=== PATIENT | male | born 1960 | race Caucasian/White ===

== ENCOUNTER 2018-05-22 23:26 | Observation (INO) ==
[2018-05-23 00:15] VITALS: O2SAT 98
[2018-05-23 00:27] LABS: Baso # (Auto) 0.1 th/mm3 (0.0-0.2); Eos # (Auto) 0.5 th/mm3 (0.0-0.4); Hematocrit 42.1 % (39.0-51.0); Hemoglobin 14.5 gm/dL (13.0-17.0); Lymph # (Auto) 3.3 th/mm3 (1.0-4.8); Lymph % (Auto) 36.9 % (9.0-44.0); Mean Corpuscular HGB Conc 34.5 % (32.0-36.0); Mean Corpuscular Hemoglobin 31.2 pg (27.0-34.0); Mean Corpuscular Volume 90.5 fL (80.0-100.0); Mean Platelet Volume 8.9 fL (7.0-11.0); Mono # (Auto) 0.7 th/mm3 (0.0-0.9); Mono % (Auto) 8.2 % (0.0-8.0); Neut # (Auto) 4.4 th/mm3 (1.8-7.7); Neut % (Auto) 48.9 % (16.0-70.0); Platelet Count 278 th/mm3 (150-450); Red Blood Count 4.65 mil/mm3 (4.50-5.90); Red Cell Distribution Width 13.3 % (11.6-17.2)
[2018-05-23 00:46] LABS: Activated Partial Thrombo Time 27.9 sec (24.3-30.1); Prothrombin Time 10.4 sec (9.8-11.6)
[2018-05-23 01:00] LABS: Anion Gap 5 meq/L (5-15); Blood Urea Nitrogen 19 mg/dL (7-18); Calcium 8.9 mg/dL (8.5-10.1); Carbon Dioxide 30.9 meq/L (21.0-32.0); Chloride 103 meq/L (98-107); Glomerular Filtration Rate 66 mL/min (>89); Glucose,Random 90 mg/dL (74-106); Potassium 3.7 meq/L (3.5-5.1); Sodium 139 meq/L (136-145)
--- NOTE | 2018-05-23 01:01 | XR ---
EXAM DATE: 05/23/2018 12:48 AM EDT AGE/SEX: 57 years / Male INDICATIONS: Shortness of breath and chest pain off and on for a few weeks. CLINICAL DATA: This is the patient's initial encounter. Patient reports that signs and symptoms have been present for 2 weeks and indicates a pain score of 3/10. MEDICAL/SURGICAL HISTORY: None. None. COMPARISON: No prior exams available for comparison. FINDINGS: A single AP view of the chest demonstrates the lungs to be symmetrically aerated without evidence of mass, infiltrate or effusion. The cardiomediastinal contours are unremarkable. Osseous structures a re intact. CONCLUSION: No acute cardiopulmonary disease Electronically signed by: Jerson Mike MD 05/23/2018 1:00 AM EDT
--- NOTE | 2018-05-23 01:02 | US ---
EXAM DATE: 05/23/2018 12:42 AM EDT AGE/SEX: 57 years / Male INDICATIONS: Right leg swelling. CLINICAL DATA: This is the patient's initial encounter. Patient reports that signs and symptoms have been present for 1 month and indicates a pain score of 0/10. MEDICAL/SURGICAL HISTORY: . Hemorrhoids. . Hand surgery. Knee surgery. Cyst removal. COMPARISON: No prior exams available for comparison. TECHNIQUE: Venous ultrasound of both lower extremities was performed from the inguinal ligament to t he proximal calf. Real-time, color Doppler and spectral tracing, compression and augmentation techni ques were used. FINDINGS: Normal compression of the deep venous system from the inguinal region to the proximal calf . No echogenic clot is seen. Normal response of the venous system to augmentation and respiration. CONCLUSION: 1. No DVT right leg Electronically signed by: Jerson Mike MD 05/23/2018 1:01 AM EDT
--- NOTE | 2018-05-23 01:11 | ED ---
HPI General Chief complaint: Chest Pain Stated complaint: Chest pain, SOB Time Seen by Provider: 05/22/18 23:48 Source: patient, family and RN notes reviewed Mode of arrival: ambulatory History of Present Illness HPI narrative: 57yM presenting with chest pain. The patient states that for the past several weeks he's been having episodes of sudden-onset left-sided chest pain which he describes as "sharp/ aching", radiating to his left shoulder, lasting for a few minutes and resolving on its own, moderate intensity, precipitated by minimal exertion and relieved with rest, and associated with lightheadedness "like I'm going to pass out". He denies fever, cough, palpitations, dyspnea, or nausea. He reports chronic RLE edema which is somewhat improved compared to baseline. He is visiting from the [place] and had a long car ride yesterday. He has not seen a finisher brush in a number of years. Family history significant for father with CAD in early 60s/ fatal [place] in late 60s. Related Data Allergies Allergy/AdvReac Type Severity Reaction Status Date / Time No Known Allergies Allergy Verified 05/22/18 23:31 Review of Systems ROS: all other systems reviewed are negative Constitutional Denies fever(s) Eyes Denies blurry vision ENT Denies nasal congestion Cardiovascular Reports chest pain Respiratory Denies cough Gastrointestinal Denies nausea Genitourinary Denies dysuria Musculoskeletal Denies back pain Neurologic Denies confusion Psychiatric Denies confusion PMFSH History History Provided By: Patient Medical History Medical History Hx of hemorrhoids (Acute) Patient denies medical problems (Acute) Surgical History Surgical History Hx of hand surgery (Acute) Hx of knee surgery (Acute) Hx of removal of cyst (Acute) Social History Social History Substance History: No History of Abuse Second Hand Smoke Exposure: No Smoking Status: Former smoker How Often Do You Have a Drink Containing Alcohol: Never Recent Travel in [facility] within the Last 8 Weeks: No Recent Out of Country Travel within the Last 8 Weeks: No Immunization History Tetanus Immunization: <5 Years Hx Influenza Vaccine This Season: No Exam Const General: healthy appearing and no acute distress HENMT Head: normocephalic and atraumatic Face and sinus: normal facial exam Eyes General: appearance normal, both eyes and all related structures Pupils: PERRL Chest Chest: normal inspection of the chest Resp Effort & Inspection: normal respiratory effort Auscultation: no rhonchi and no wheezes Cardio Rate: regular rate Rhythm: regular rhythm GI Inspection: non-distended Palpation: soft and nontender Skin General: no rashes or lesions noted Neuro General: alert, awake, oriented x3 and no focal motor deficits Extrem Other: 1+ pitting edema to right knee, trace edema to left ankle Psych Affect: normal affect Course Initial Documented Vital Signs Temperature 97.6 F 05/22/18 23:29 Pulse Rate 77 05/22/18 23:29 Respiratory Rate 18 05/22/18 23:29 Blood Pressure 122/69 05/22/18 23:29 Pulse Oximetry 99 05/22/18 23:29 Last Documented Vital Signs Temperature 97.6 F 05/22/18 23:29 Pulse Rate 79 05/23/18 00:14 Respiratory Rate 18 05/22/18 23:43 Blood Pressure 150/71 H 05/22/18 23:43 Pulse Oximetry 98 05/23/18 00:14 Clinical Decision Support HEART Score Questions History: Moderately suspicious EKG: Non-specific repolarization disturbance Age: 45-64 years Risk Factors: 1-2 Risk Factors Initial Troponin: Normal Limit Heart Score HEART Score: 4 Medical Decision Making [facility] Narrative Medical decision making narrative: Assessment: 57yM presenting with chest pain Plan: EKG and monitor Labs CXR US right lower extremity Patient is high-risk for unstable angina/ ACS, will need to stay for chest pain center obs Patient and his daughter understand and agree with plan. Differential Diagnosis Differential Diagnosis: Differential diagnosis includes, but is not limited to: ACS/ unstable angina, pericarditis, pneumonia, pleuritis Lab Data Lab results reviewed: Yes I reviewed the patient's lab results. Result diagrams: 05/23/18 00:10 05/23/18 00:10 Lab Results 05/23/18 05/23/18 05/23/18 Range/Units 00:10 00:10 00:10 WBC 9.0 (4.0-11.0) th/mm3 RBC 4.65 (4.50-5.90) mil/mm3 Hgb 14.5 (13.0-17.0) gm/dL Hct 42.1 (39.0-51.0) % MCV 90.5 (80.0-100.0) fL MCH 31.2 (27.0-34.0) pg MCHC 34.5 (32.0-36.0) % RDW 13.3 (11.6-17.2) % Plt Count 278 (150-450) th/mm3 MPV 8.9 (7.0-11.0) fL Neut % (Auto) 48.9 (16.0-70.0) % Lymph % (Auto) 36.9 (9.0-44.0) % [place] % (Auto) 8.2 H (0.0-8.0) % Eos % (Auto) 5.0 H (0.0-4.0) % Baso % (Auto) 1.0 (0.0-2.0) % Neut # (Auto) 4.4 (1.8-7.7) th/mm3 Lymph # (Auto) 3.3 (1.0-4.8) th/mm3 [place] # (Auto) 0.7 (0.0-0.9) th/mm3 Eos # (Auto) 0.5 H (0.0-0.4) th/mm3 Baso # (Auto) 0.1 (0.0-0.2) th/mm3 WBC Differential . Differential Comment Auto diff final PT 10.4 (9.8-11.6) sec INR 1.0 Ratio APTT 27.9 (24.3-30.1) sec Sodium 139 (136-145) meq/L Potassium 3.7 (3.5-5.1) meq/L Chloride 103 (98-107) meq/L Carbon Dioxide 30.9 (21.0-32.0) meq/L Anion Gap 5 (5-15) meq/L BUN 19 H (7-18) mg/dL Creatinine 1.14 (0.60-1.30) mg/dL Estimated GFR 66 L (>89) mL/min Random Glucose 90 (74-106) mg/dL Calcium 8.9 (8.5-10.1) mg/dL Troponin I Less than 0.02 L (0.02-0.05) ng/mL Imaging Data Radiologist's impression: Chest X-Ray 05/23/18 00:01 CONCLUSION: No acute cardiopulmonary disease Venous Doppler Study 05/23/18 00:01 CONCLUSION: 1. No DVT right leg ECG Data Attestation: I personally reviewed and interpreted this ECG as follows: Interpretation: Rate: 70 BPM Rhythm: Sinus [place]: Normal Intervals: ICVD, QTc 400 ms Q waves: None T waves: Flattened in aVL ST segments: No elevations or depressions Impression: Non-specific EKG, no previous EKG available for comparison. Discharge Plan Discharge Disposition Patient Disposition: 30 Still Patient Discharge Condition Condition: Stable Discharge Details Diagnosis: Unstable angina Physicians Team ED Provider: Maryjane Marcus Primary Care Provider: Primary Care Karlee Sparks Discharge Instructions Patient Printed Instructions: Chest Pain (ED) Discharge Interventions Interventions: Vital Signs Last Done: 05/22/18 23:43 Status ED Status: Ready for Discharge
[2018-05-23] MEDS ORDERED: Acetaminophen 500 MG Tablet PO PRN (01:41)
[2018-05-23] MEDS ORDERED: Amitriptyline 100 MG Tablet PO ONE (01:41)
--- NOTE | 2018-05-23 07:52 | P.HPCA ---
History of Present Illness Primary Care Physician: Primary Care Physician in [place] Chief Complaint: Chest pain History of Present Illness: 57 year old male without significant medical history presents to ER for further evaluation of nonexertional, intermittent chest pain. Onset weeks. Location left anterior chest. Characterized as sharp, stabbing pain. Duration seconds. No radiation. Moderate in severity. No associated symptoms of nausea, vomiting, dyspnea, or diaphoresis. Did not hurt to take a deep breath. No particular movement or position made pain better or worse. No precipitating or relieving factors. Denies cardiac history. No past cardiac testing. Denies history of diabetes, hypertension, or hyperlipidemia. Family history noncontributory for early onset cardiovascular disease. Visiting from [place]. Plans to return home Wednesday. Reports intermittent chest pain for weeks and considered having primary care provider evaluated prior to trip to [place]. Last evening when getting up from couch, developed above pain. Daughter encouraged him to go to ER for further evaluation. No further chest discomfort since last evening episode. No recent illness or injury. - Diagnosis (1) Atypical chest pain Review of Systems All other systems reviewed negative except as stated in HPI PMFSH - History History Provided By: Patient - Medical History Medical History: Medical History (Last Reviewed 05/23/18 @ 10:01 by RALF Guardado) Hx of hemorrhoids Patient denies medical problems - Surgical History Surgical History: Surgical History (Last Reviewed 05/23/18 @ 10:01 by RALF Guardado) Hx of hand surgery Hx of knee surgery Hx of removal of cyst - Tobacco History Second Hand Smoke Exposure: No Tobacco Use In Past 30 Days: No Smoking Status: Former smoker (quit 2000, former 2-3 pack/daily) - Alcohol History How Often Do You Have a Drink Containing Alcohol: Never - Substance Use History Substance History: Past History - Travel History Recent Travel in the [place] Within the Last 8 Weeks: No Recent Travel Out of the Country Within the Last 8 Weeks: No - Immunization History Tetanus Immunization: <5 Years Hx Influenza Vaccine This Season: No Medications and Allergies Active Medications: Active Medications Acetaminophen (Tylenol) 500 mg PO Q4H PRN PRN Reason: HEADACHE Aspirin (Aspirin) 325 mg PO DAILY WIL Nitroglycerin (Nitrostat Sl) 0.4 mg SL Q5M PRN PRN Reason: CHEST PAIN Sodium Chloride (Ns Flush) 2 ml IV.FLUSH UNSCH PRN PRN Reason: FLUSH AFTER USING IV ACCESS Last Admin: 05/23/18 03:48 Dose: 2 ml Sodium Chloride (Ns Flush) 2 ml IV.FLUSH BID WIL Sodium Chloride (Ns Flush) 2 ml IV.FLUSH PRN PRN PRN Reason: FLUSH AFTER USING IV ACCESS Allergies Allergy/AdvReac Type Severity Reaction Status Date / Time No Known Allergies Allergy Verified 05/22/18 23:31 Exam Vital signs: Vital Signs 05/22/18 23:29 05/22/18 23:43 05/23/18 00:14 Temperature 97.6 F Pulse Rate 77 68 79 Respiratory Rate 18 18 Blood Pressure 122/69 150/71 H Pulse Oximetry 99 97 98 05/23/18 03:32 Temperature 98.2 F Pulse Rate 59 L Respiratory Rate 16 Blood Pressure 122/74 Pulse Oximetry 98 Intake & Output 05/22/18 05/23/18 05/23/18 18:59 06:59 18:59 Weight 105 kg Other: # Voids 2 Narrative: GENERAL: Alert WN, WD, NAD, male moderately obese HEAD: NC, AT EYES: Sclera clear, conjunctiva without injection, pupils equal and round ENT: Mucous membranes pink and moist, no nasal discharge or bleeding NECK: Supple, no masses, trachea midline CV: RRR, without murmur, rub, gallop. Chest wall nontender with palpation. RESP: Clear lungs throughout bilateral, no crackles, wheeze, rhonchi, symmetrical chest rise, nonlabored, able to speak in full sentences ABD: Soft, NT, ND, no masses, positive bowel tones EXT: Pulses +2x4, no dependent edema MS: Normal tone x4 extremities, nontender, no obvious deformities, full range of motion NEURO: CN II through CN XII grossly intact, motor strength 5/5, gait WNL PSYCH: A+O x3, flat affect, appropriate speech, mood, insight and judgment SKIN: Normal turgor, normal texture, no lesions, no rashes, brisk cap refill, even hair distribution Results 05/23/18 00:10 05/23/18 00:10 Cardiac Enzymes 05/23/18 05/23/18 Range/Units 00:10 03:31 Troponin I Less than 0.02 L Less than 0.02 L (0.02-0.05) ng/mL Coagulation 05/23/18 Range/Units 00:10 PT 10.4 (9.8-11.6) sec APTT 27.9 (24.3-30.1) sec CBC 05/23/18 Range/Units 00:10 WBC 9.0 (4.0-11.0) th/mm3 RBC 4.65 (4.50-5.90) mil/mm3 Hgb 14.5 (13.0-17.0) gm/dL Hct 42.1 (39.0-51.0) % Plt Count 278 (150-450) th/mm3 Neut # (Auto) 4.4 (1.8-7.7) th/mm3 Lymph # (Auto) 3.3 (1.0-4.8) th/mm3 [place] # (Auto) 0.7 (0.0-0.9) th/mm3 Eos # (Auto) 0.5 H (0.0-0.4) th/mm3 Baso # (Auto) 0.1 (0.0-0.2) th/mm3 Comprehensive Metabolic Panel 05/23/18 Range/Units 00:10 Sodium 139 (136-145) meq/L Potassium 3.7 (3.5-5.1) meq/L Chloride 103 (98-107) meq/L Carbon Dioxide 30.9 (21.0-32.0) meq/L BUN 19 H (7-18) mg/dL Creatinine 1.14 (0.60-1.30) mg/dL Calcium 8.9 (8.5-10.1) mg/dL Intake and Output 05/22/18 05/23/18 05/23/18 22:59 06:59 14:59 Other: # Voids 2 Weight 105 kg EKG interpretations - EKG EKG results cardiology: sinus rhythm, normal axis, normal QRS, normal ST/T Caprini VTE Risk Assessment Caprini VTE Risk Assessment: No/Low Risk (score <= 1) Caprini Risk Assessment Model: Point Value = 1 Point Value = 2 Point Value = 3 Point Value = 5 Age 41-60 Minor surgery BMI > 25 kg/m2 Swollen legs Varicose veins or History of unexplained or recurrent spontaneous Oral contraceptives or hormone replacement Sepsis (< 1 month) Serious lung disease, including pneumonia (< 1 month) Abnormal pulmonary function Acute myocardial infarction Congestive heart failure (< 1 month) History of inflammatory bowel disease Medical patient at bed rest Age 61-74 Arthroscopic surgery Major open surgery (> 45 min) Laparoscopic surgery (> 45 min) Malignancy Confined to bed (> 72 hours) Immobilizing plaster cast Central venous access Age >= 75 History of VTE Family history of VTE Factor V Leiden Prothrombin [id number] Lupus anticoagulant Anticardiolipin antibodies Elevated serum homocysteine Heparin-induced thrombocytopenia Other congenital or acquired thrombophilia Stroke (< 1 month) Elective arthroplasty Hip, pelvis, or leg fracture Acute spinal cord injury (< 1 month) Prophylaxis Regimen: Total Risk Factor Score Risk Level Prophylaxis Regimen 0-1 Low Early ambulation 2 Moderate Order ONE of the following: *Sequential Compression Device (SCD) *Heparin 5000 units SQ BID 3-4 Higher Order ONE of the following medications: *Heparin 5000 units SQ TID *Enoxaparin/Lovenox 40 mg SQ daily (WT < 150 kg, CrCl > 30 mL/min) *Enoxaparin/Lovenox 30 mg SQ daily (WT < 150 kg, CrCl > 10-29 mL/min) *Enoxaparin/Lovenox 30 mg SQ BID (WT < 150 kg, CrCl > 30 mL/min) AND/OR *Sequential Compression Device (SCD) 5 or more Highest Order ONE of the following medications: *Heparin 5000 units SQ TID (Preferred with Epidurals) *Enoxaparin/Lovenox 40 mg SQ daily (WT < 150 kg, CrCl > 30 mL/min) *Enoxaparin/Lovenox 30 mg SQ daily (WT < 150 kg, CrCl > 10-29 mL/min) *Enoxaparin/Lovenox 30 mg SQ BID (WT < 150 kg, CrCl > 30 mL/min) AND *Sequential Compression Device (SCD) Assessment and Plan - Assessment (1) Atypical chest pain Code(s): R07.89 - Other chest pain Status: Acute Plan: Admitted chest pain center. ACS ruled out 3 sets of EKGs and cardiac enzymes. Seen evaluated by Dr. Kai John. Proceed with exercise cardiac testing this morning. If unremarkable, plans to be discharged home with follow-up with PCP once returning home to [place]. Agreeable to plan of care and verbalized understanding. H&P: Quality - VTE Deep Vein Thrombosis/Pulmonary Embolism Present on Admission: No
[2018-05-23 08:31] VITALS: BP 132/72; PULSE 57; RESP 12; TEMP 97.8
[2018-05-23] MEDS ORDERED: Aspirin 325 MG Tablet PO SCH (09:00)
--- NOTE | 2018-05-23 13:38 | ECG ---
Date Performed: 05/23/2018 Time Performed: 06:46:48 PTAGE: 57 years EKG: SINUS BRADYCARDIA BORDERLINE ECG NO PREVIOUS TRACING DOCTOR: Kai John Interpretating Date/Time 05/23/2018 13:37:39
--- NOTE | 2018-05-23 13:39 | ECG ---
Date Performed: 05/23/2018 Time Performed: 03:38:05 PTAGE: 57 years EKG: SINUS BRADYCARDIA BORDERLINE ECG INTERPRETATION BASED ON A DEFAULT AGE OF 40 YEARS NO PREVIOUS TRACING DOCTOR: Kai John Interpretating Date/Time 05/23/2018 13:37:56
--- NOTE | 2018-05-23 13:40 | ECG ---
Date Performed: 05/22/2018 Time Performed: 23:39:18 PTAGE: 57 years EKG: Sinus rhythm MODERATE INTRAVENTRICULAR CONDUCTION DELAY BORDERLINE ECG NO PREVIOUS TRACING DOCTOR: Kai John Interpretating Date/Time 05/23/2018 13:38:36
--- NOTE | 2018-05-23 13:42 | TR ---
Date Performed: 05/23/2018 Time Performed: 09:22:09 DOCTOR: Kai John DRUG LIST: CLINICAL HISTORY: REASON FOR TEST: REASON FOR ENDING: OBSERVATION: CONCLUSION: Clarence protocol completed. Stopped sec to exceeding target heart rate and leg fatigue , unable to walk safely during stage 3. Maximum ZS=[id number] Max HR Achieved=93.0% Maximum MU=283/74 Total Exercise Time=6:11. No reprod chest discomfort. No ectopy. Upsloping st segments. Normal bp response . Fair exercise tolerance. Recovery quick and unremarkable. COMMENTS: Patient exercised using the Clarence protocol. No electrocardiographic changes were seen to suggest ischemia. Hemodynamic response to exercise was normal. No significant arrhythmia was prese nt.
== END 2018-05-23 13:28 | disposition home or self-care (01) ==
LOC: NEDA 23:26 → NEPC 23:26 → NEPGCP 23:26
PROVIDERS: ADMIT Internal Medicine Interventional Cardiology; ATTEND Internal Medicine Interventional Cardiology
DX: Z87.891 Personal history of nicotine dependence; R07.89 Other chest pain; Z82.49 Family history of ischemic heart disease and other diseases of the circulatory system; R94.31 Abnormal electrocardiogram [ECG] [EKG]